=== PATIENT | male | born 2000 | race Caucasian/White ===

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

== ENCOUNTER 2021-11-08 07:19 | Day surgery (SDC) | payer BC, SELFPAY ==
[2021-11-06 10:40] VITALS: BMI 24.4
[2021-11-08 07:50] VITALS: BP 139/80; PULSE 85; RESP 18; TEMP 36.7; O2SAT 99
--- NOTE | 2021-11-08 07:52 | PC.NURSE ---
patient uncomfortableness in throat area, states it feels like a fullness, states why he is here.
[2021-11-08] MEDS: sodium chloride 0.9% 1,000 ML 30 ML IV (07:56)
--- NOTE | 2021-11-08 08:30 | ANES.PREANE2 ---
Pre-Anesthetic Assessment Height/Weight: Height 1.85 m Weight 83.915 kg Temp Pulse Resp BP Pulse Ox O2 Del Method 98.0 F 85 18 139/80 99 11/08/21 07:50 11/08/21 07:50 11/08/21 07:50 11/08/21 07:50 11/08/21 07:50 11/08/21 07:50 Preop Diagnosis: Epigastric pain Operation Date: 11/08/21 08:45 Proposed Procedures p EGD 337007,K21.9(Not Applicable) - Junior Christine MD Familial anesthetic complications: None Was Beta Aurelio taken within 24 hours: N/A Was Clonidine taken within 24 hours: N/A Last intake: Intake Last Liquid Date 11/07/21 Last Liquid Time 22:00 Last Solid Date 11/07/21 Last Solid Time 22:00 Social No alcohol and No tobacco Exam alert, oriented x 3, clear to auscultation bilaterally and regular rate & rhythm Airway Submandibular: within normal limits Cervical ROM: within normal limits Mallampati: Class I Dentition: chipped History/ROS No significant complaints Pulmonary None reported Sinus congestion today from allergies, denies fever/sore throat CV/HEM None reported None reported Hepatic None reported GI Gastroesophageal Reflux Disease Metabolic None reported Musc/skel None reported Neuropsych Anxiety Panic attacks Anesthetic Plan ASA status: 2 Anesthesia: Anesthesia Evaluation, General and MAC Other: I discussed with the patient risks, goals, and benefits of MAC and general anesthesia. We discussed spectrum of MAC anesthesia including conversion to general as well as possibility of recall of intraoperative stimuli including discomfort/pain. Patient agrees to proceed with MAC. Risk of > 500 ml blood loss (7ml/kg in children): No Medications/Allergies Home Medications Medication Instructions Recorded Confirmed Last Taken Type acetylcysteine 600 mg capsule 600 mg PO BID #60 caps 09/27/21 11/06/21 Unknown Rx sertraline 25 mg tablet (Zoloft) 25 mg PO QAM 11/06/21 11/06/21 Unknown History dexlansoprazole 60 mg 60 mg PO DAILY 11/08/21 11/08/21 11/08/21 History capsule,biphase delayed release (Dexilant) Allergies Allergy/AdvReac Type Severity Reaction Status Date / Time hydroxyzine Allergy hives Verified 11/06/21 10:38 Current Medications Generic Name Dose Route Start Last Admin Trade Name Freq PRN Reason Stop Dose Admin Sodium Chloride 1,000 mls @ 30 mls/hr 11/08/21 07:45 11/08/21 07:56 Sodium Chloride 0.9% IV 30 mls/hr .Q24H MARIA TERESA Administration PFSH Anesthesia Medical History Generalized anxiety disorder with panic attacks Psychiatric care Trichotillomania Surgical History No pertinent past surgical history Family History Father Hypertension Other Dementia Social History Smoking and tobacco status: current some day smoker Data Anesthesia Cardiac Studies: No Data to Display
--- NOTE | 2021-11-08 08:55 | P.HP_ITS ---
Same Day Surgery H&P Indication for Procedure/HPI DATE OF PROCEDURE: November 08, 2021 CHIEF COMPLAINT/INDICATIONFOR SURGICAL PROCEDURE: Epigastric pain PREOP DIAGNOSIS: Epigastric pain PLANNED PROCEDURE: Operation Date: 11/08/21 08:45 Proposed Procedures p EGD [id number],K21.9(Not Applicable) - Junior Chirstine MD 10/03/2021 This is a pleasant 20 years old gentleman gives history with epigastric pain and issues with swallow, reports that the pain is being stabbing gets better sometimes with PPI therapy and at some point he had some chest discomfort thinking that he was having a heart attack overall his pain is not better and I did notice during the clinical encounter that the patient does have a raspy voice which does indicate chronic GERD.? Patient reports that the pain mostly in the epigastric area and referred sometimes to the chest.? Nothing seems to make it better or worse Current symptoms: Reports odynophagia; Denies dysphagia Interim history 11/08/2021 Patient comes today for diagnostic EGD due to epigastric pain. ROS All systems have been reviewed negative except as for the above or per problem list. Medications/Allergies* Home Medications Medication Instructions Recorded Confirmed Type sertraline 25 mg tablet (Zoloft) 25 mg PO QAM 11/06/21 11/06/21 History dexlansoprazole 60 mg 60 mg PO DAILY 11/08/21 11/08/21 History capsule,biphase delayed release (Dexilant) Allergies/Adverse Reactions Allergy/AdvReac Type Severity Reaction Status Date / Time hydroxyzine Allergy hives Verified 11/08/21 08:56 Current Medications: Generic Name Dose Route Start Last Admin Trade Name Freq PRN Reason Stop Dose Admin Sodium Chloride 1,000 mls @ 30 mls/hr 11/08/21 07:45 11/08/21 07:56 Sodium Chloride 0.9% IV 30 mls/hr .Q24H MARIA TERESA Administration Pertinent History/Comorbid Conditions* Medical History (Updated 10/05/21 @ 12:16 by Junior Christine MD) Generalized anxiety disorder with panic attacks Psychiatric care Trichotillomania Surgical History (Updated 05/24/21 @ 14:18 by Fay Rinaldi MD) No pertinent past surgical history Family History (Updated 05/24/21 @ 14:01 by Bryanna Hendrix LPN, RT) Dementia Hypertension Father Social History Smoking and tobacco status: current some day smoker Pertinent Exam Findings alert, oriented x 3, regular rate & rhythm and procedure specific exam findings (Abdominal exam nontender nondistended soft) Recommendations Surgery/Procedure today (EGD with possible biopsy) Coding Level of Care Code Acute A And P Technician for [facility]
[2021-11-08 09:34] VITALS: BP 124/84; PULSE 110; RESP 16; TEMP 36.4; O2SAT 95
[2021-11-08 09:47] VITALS: BP 131/75; PULSE 87; RESP 16; O2SAT 95
[2021-11-08 09:57] VITALS: BP 135/83; PULSE 88; RESP 18; O2SAT 98
--- NOTE | 2021-11-08 14:40 | ANE.PACU2 ---
Inpatient post-anesthesia follow up: Airway intact: Yes Vital signs: Temperature 97.6 F Pulse Rate 88 Respiratory Rate 18 Blood Pressure 135/83 Pulse Oximetry 98 Oxygen Delivery Me thod Room Air Oxygen Flow Rate 4 Fraction of Inspir ed Oxygen Hydration adequate: Yes Nausea and vomiting: No Pain level: 1 Mental status: Baseline
== END 2021-11-08 10:20 | disposition home or self-care (01) ==
PROVIDERS: PCP Family Medicine; Visit Provider Surgery
PROC: 0DJ08ZZ Inspection of Upper Intestinal Tract, Via Natural or Artificial Opening Endoscopic (ICD-10-PCS; CPT 43235; principal; 2021-11-08 08:45)
DX: R10.13 Epigastric pain (principal); K21.9 Gastro-esophageal reflux disease without esophagitis; K29.70 Gastritis, unspecified, without bleeding
CPT/HCPCS: 43239; 88305; J2704; J7030

== ENCOUNTER 2021-11-24 16:28 | Emergency (ER) | payer BC, SELFPAY ==
[2021-11-24 16:30] VITALS: BP 153/99; PULSE 83; RESP 16; TEMP 36.8; O2SAT 98; BMI 22.8
--- NOTE | 2021-11-24 17:45 | W.ED.DENTAL ---
HPI - Dental/Oral General: Chief complaint: Dental/Oral Stated complaint: Mouth swollen and hurting Time Seen by Provider: 11/24/21 17:35 History of Present Illness: Patient is a 21-year-old male comes to the ED with dental pain. Symptoms started this morning. Patient has a broken bottom left molar that he seen dentist before approximately 3 months ago and they were supposed to remove it but he has not had a follow-up appointment to get that done. Today developed some pain and swelling in his left lower jaw. He rates the pain currently an 8 out of 10. He took a dose of Tylenol several hours before coming to the ED. Denies any fevers, trouble breathing. Associated symptoms: Denies fever(s) or odynophagia Review of Systems Const: Denies: fever(s), chills or fatigue Eyes: Denies: change in vision or eye discomfort ENMT: Reports: dental pain; Denies: throat pain, odynophagia, nasal discharge or nasal congestion Card: Denies: chest pain, palpitations, edema, swelling of feet/ankles, dyspnea on exertion or orthopnea Resp: Denies: dyspnea, productive cough or non-productive cough GI: Denies: abdominal pain, nausea, vomiting, diarrhea, constipation or hematochezia : Denies: flank pain, difficulty urinating, dysuria or hematuria Musc: Denies: neck pain, back pain or extremity swelling Skin/Breast: Denies: rash or new lesions Neuro: Denies: headache(s), numbness in extremities or weakness in extremities PFS ED PFSH: Medical History Bipolar affective disorder, current episode mixed, without psychotic features Generalized anxiety disorder with panic attacks Psychiatric care Trichotillomania Surgical History No pertinent past surgical history Family History Father Hypertension Other Dementia Social History Smoking and tobacco status: former smoker Quit status (tobacco): has quit using tobacco Year quit tobacco: 2016 Former quit date comment: vaped x 4 yrs Second hand smoke exposure: No Alcohol intake: never Adopted: No Caregiver/support person: Yes Lives independently: No Household members: family Marital status: Single Current occupational status: employed Current occupation: [employer] History of recent travel: No Current gender identity: Male Special cherri needs: No Agree to transfusion: Yes Physical Exam Const: COMMON NORMALS: no acute distress, patient oriented x3 and alert GENERAL APPEARANCE: cooperative and comfortable HENMT: COMMON NORMALS: normocephalic HEAD & SCALP: normocephalic MOUTH: Normal oral and palatal mucosa present TEETH & GINGIVA: Yes abnormal tooth and associated gingiva lower left third molar tender and with associated gingival edema THROAT: posterior oropharynx normal and uvula midline Neck/C-Spine: COMMON NORMALS: supple GENERAL: Yes normal visual inspection Resp: COMMON NORMALS: normal respiratory effort, No retractions, No use of accessory muscles and clear to auscultation bilaterally AUSCULTATION: clear to auscultation bilaterally Cardio: COMMON NORMALS: regular rate, regular rhythm, S1 normal heart sound present, S2 normal heart sound present, No gallops present (Cardio), No clicks present (Cardio), No murmurs present (Cardio) and Peripheral pulses 2+ throughout RATE: regular rate RHYTHM: regular rhythm HEART SOUNDS: S1 normal heart sound present and S2 normal heart sound present PERIPHERAL PULSES: Peripheral pulses 2+ throughout GI: COMMON NORMALS: Normal to inspection, nondistended, normoactive bowel sounds present, Soft to palpation, non-tender and no masses PALPATION: Yes Soft to palpation : COMMON NORMALS: Yes no CVA tenderness BLADDER/KIDNEY EXAM: Yes no CVA tenderness Back/Pelvis: COMMON NORMALS: no CVA tenderness Extremity: COMMON NORMALS: normal to inspection Neuro: COMMON NORMALS: patient oriented x3 SENSORIUM/ORIENTATION: Yes alert GAIT: Yes Normal gait present Skin: GENERAL SKIN EXAM: dry skin Course Vital Signs: Vital signs: Vital Signs Temperature 98.2 F 11/24/21 16:30 Pulse Rate 72 11/24/21 18:08 Respiratory Rate 17 11/24/21 18:08 Blood Pressure 153/99 11/24/21 16:30 Pulse Oximetry 98 11/24/21 18:08 Oxygen Delivery Me thod 11/24/21 18:03 [facility] - Dental/Oral Medical Decision Making Patient is a 21-year-old male comes to the ED with dental pain. Symptoms started earlier today. Patient has broken left lower molar with some surrounding gingival edema. Patient appears nontoxic in no acute distress. Denies any trouble breathing or any fevers. He was given a dose of hydrocodone here in the ED to help with pain and clindamycin. Told to follow-up with dentist as soon as possible. Sent home with a prescription for clindamycin, lidocaine viscous and Tylenol for pain. Return ED precautions given. Patient understood and agreed with plan. Discharge Plan Discharge Patient Disposition: Home Clinical Impression: Pain, dental Condition: Stable Prescriptions: New acetaminophen 650 mg tablet extended release 650 mg PO Q8H PRN (Reason: pain) Qty: 20 0RF Lidocaine Viscous 2 % solution 1 applic mucous membrane Q6H PRN (Reason: pain) Qty: 100 0RF clindamycin HCl 150 mg capsule 300 mg PO QID 7 Days Qty: 56 0RF No Action chlorpromazine 50 mg tablet 50 mg PO .bedtime Qty: 90 1RF Rx Instructions: Take one tablet at bedtime acetylcysteine 600 mg capsule 600 mg PO BID Qty: 180 1RF Rx Instructions: Take one capsule twice per day benzonatate 100 mg capsule 100 mg PO TID PRN (Reason: cough) 90 Days Qty: 90 1RF sucralfate [Carafate] 1 gram tablet 1 g PO Q6H Qty: 120 3RF dexlansoprazole [Dexilant] 60 mg capsule,biphase delayed releas 60 mg PO DAILY Qty: 90 1RF fexofenadine [Scarlet Allergy] 180 mg tablet 180 mg PO DAILY Qty: 90 2RF Discharge Orders: Discharge ED (Routine); Ordered 11/24/21 Ordered By: Tera Ortiz Referrals: Fay Rinaldi MD [Primary Care Provider] - Discharge Diet: Regular Discharge Activity: Increase activity as tolerated Patient Instructions: Toothache (ED) Activity Restrictions/Additional Instructions: Follow-up with dentist as soon as possible to have dental pain evaluated. Take medications as prescribed. Return to the ER or your medical provider if condition worsens. Please read and understand discharge instructions. Thank you for choosing [facility] for your healthcare needs today. Please realize this is an emergency room and that we are providing you with a medical screening exam and this may not be complete and all inclusive of all the testing and or work up that you may need to determine your ailment or severity of your illness. It is very important that you follow up as instructed or that you return to the Emergency Department should you have concerns or if your condition changes or worsens in any way. 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
[2021-11-24 18:03] VITALS: PULSE 76; RESP 17; O2SAT 97
[2021-11-24] MEDS: clindamycin 150 mg Capsule 300 MG PO (18:05)
[2021-11-24] MEDS: HYDROcodone-acetaminophen 7.5-325 mg Tablet 1 TAB PO (18:05)
[2021-11-24 18:08] VITALS: PULSE 72; RESP 17; O2SAT 98
== END 2021-11-24 18:09 | disposition home or self-care (01) ==
PROVIDERS: Emergency Provider Physician Assistant; PCP Family Medicine
DX: K08.89 Other specified disorders of teeth and supporting structures (principal); Z87.891 Personal history of nicotine dependence
CPT/HCPCS: 99283

== ENCOUNTER → 2022-10-25 10:42 | Outpatient (BNVA) | payer OTHER, SELFPAY | PROVIDERS: PCP Family Medicine; Visit Provider Family Medicine | DX: J02.9 Acute pharyngitis, unspecified (principal); F41.8 Other specified anxiety disorders | CPT/HCPCS: 87071; 87880 ==

== ENCOUNTER → 2023-07-30 14:30 | Outpatient (BNVA) | payer OTHER, SELFPAY | PROVIDERS: PCP Family Medicine; Visit Provider Family Medicine | DX: R07.0 Pain in throat (principal); J02.9 Acute pharyngitis, unspecified; K21.9 Gastro-esophageal reflux disease without esophagitis; F41.9 Anxiety disorder, unspecified | CPT/HCPCS: 87071; 87880 ==

== ENCOUNTER 2023-09-12 10:43 | Outpatient (CLI) | payer OTHER, SELFPAY ==
--- NOTE | 2023-09-12 10:49 | XR_ITS ---
WS: [id number] XR hand LT min 3V* [id number] REASON FOR EXAM: M79.642 - Pain in left hand FINDINGS: No fracture or focal bone lesion. No periosteal reaction or bone erosion. The joint spaces of the left hand are intact and well preserved. No soft tissue abnormality. XR/XR hand LT min 3V* [id number] IMPRESSION: No significant abnormality.
== END 2023-09-12 10:44 | disposition home or self-care (01) ==
PROVIDERS: PCP Family Medicine; Visit Provider Nurse Practitioner Family
DX: M79.642 Pain in left hand (principal)
CPT/HCPCS: 73130

== ENCOUNTER 2023-10-22 12:12 | Emergency (ER) | payer OTHER, SELFPAY ==
[2023-10-22 12:15] VITALS: BP 143/77; PULSE 78; RESP 15; TEMP 36.4; O2SAT 100; BMI 20.5
--- NOTE | 2023-10-22 13:17 | W.ED.URI ---
HPI - URI/Sore Throat General: Chief Complaint: Upper Respiratory Infection Stated Complaint: sinus issues Time Seen by Provider: 10/22/23 12:38 Source: patient Mode of arrival: ambulatory Limitations: no limitations History of Present Illness: 23-year-old male states been having maxillary and frontal sinus pain along with nasal discharge it has been going on for the last week. He states he had sinusitis in the past this feels same he rates his pain a 5 out of 10 denies any fever denies any other complaints at this time Associated symptoms: Reports nasal congestion and sinus pain; Deny abdominal pain, chills, chest pain, diarrhea, fever(s), headache(s), nausea or vomiting Related Data Previous Rx's Medication Instructions Recorded clonazepam 1 mg tablet 1 mg PO BID #60 tabs 07/30/23 dexlansoprazole 60 mg 60 mg PO DAILY #30 caps 08/19/23 capsule,biphase delayed release (Dexilant) diclofenac sodium 75 mg 75 mg PO BID PRN pain #60 tabs 09/22/23 tablet,delayed release methylprednisolone 4 mg tablets in See Rx Instructions PO PER PKG DIR 09/22/23 a dose pack (Medrol (Javier)) #21 ea amoxicillin 500 mg-potassium 1 tab PO BID #14 tabs 10/22/23 clavulanate 125 mg tablet (Augmentin) Allergies Allergy/AdvReac Type Severity Reaction Status Date / Time hydroxyzine Allergy hives Verified 10/22/23 12:19 Review of Systems Const: Denies: fever(s), chills, body aches or change in appetite ENMT: Reports: nasal congestion and sinus pain; Denies: throat pain or dental pain Card: Denies: chest pain Resp: Denies: dyspnea GI: Denies: abdominal pain, nausea, vomiting or diarrhea Musc: Denies: neck pain or back pain Skin/Breast: Denies: rash Neuro: Denies: headache(s) PFSH ED PFSH: Medical History Bipolar affective disorder, current episode mixed, without psychotic features Generalized anxiety disorder with panic attacks GERD without esophagitis Trichotillomania Surgical History No pertinent past surgical history Family History Father Hypertension Other CAD (coronary artery disease) Social History Smoking and tobacco/nicotine status: current every day tobacco/nicotine user Quit status (tobacco/nicotine): has quit using Year quit tobacco: 2016 Former quit date comment: vaped x 4 yrs Second hand smoke exposure: No Alcohol intake: current Alcohol intake frequency: few times a week Substance/Drug Use: former Adopted: No Caregiver/support person: Yes Lives independently: No Household members: family Marital status: Single Current occupational status: employed Current occupation: [employer] Current gender identity: Male Special cherri needs: No Agree to transfusion: Yes Physical Exam Const: COMMON NORMALS: no acute distress, patient oriented x3 and healthy appearing HENMT: COMMON NORMALS: normocephalic and atraumatic HEAD & SCALP: normocephalic and atraumatic OTHER: Tenderness over maxillary and frontal sinuses Neck/C-Spine: COMMON NORMALS: full ROM and supple Chest: COMMONS NORMALS: normal inspection of the chest Resp: COMMON NORMALS: normal respiratory effort Cardio: COMMON NORMALS: regular rate, regular rhythm and No murmurs present (Cardio) RATE: regular rate RHYTHM: regular rhythm Extremity: COMMON NORMALS: normal to inspection and full ROM Neuro: COMMON NORMALS: patient oriented x3, moves all extremities and no focal motor deficits Psych: COMMON NORMALS: mental status grossly normal, Normal thought process present and cooperative THOUGHT PROCESS: Normal thought process present Skin: COMMON NORMALS: no rashes or lesions noted and no wounds GENERAL SKIN EXAM: no rashes or lesions noted Course Vital Signs: Vital signs: Vital Signs Temperature 97.6 F 10/22/23 12:15 Pulse Rate 78 10/22/23 12:15 Respiratory Rate 15 10/22/23 12:15 Blood Pressure 143/77 10/22/23 12:15 Pulse Oximetry 100 10/22/23 12:15 Oxygen Delivery Me thod Room Air 10/22/23 12:15 MDM - URI/Sore Throat Medical Decision Making Patient presents for likely sinus infection he is well-appearing here patient stable for discharge follow-up PCP return if worsening. Will place him on Augmentin did give him Decadron here No radiology studies performed this visit Discharge Plan Discharge Patient Disposition: Home Clinical Impression: Sinusitis Condition: Stable Prescriptions: New amoxicillin-pot clavulanate [Augmentin] 500-125 mg tablet 1 tab PO BID Qty: 14 0RF No Action clonazepam 1 mg tablet 1 mg PO BID Qty: 60 0RF diclofenac sodium 75 mg tablet,delayed release (DR/EC) 75 mg PO BID PRN (Reason: pain) Qty: 60 0RF methylprednisolone [Medrol (Javier)] 4 mg tablets,dose pack See Rx Instructions PO PER PKG DIR Qty: 21 0RF Rx Instructions: PO PER PKG DIR dexlansoprazole [Dexilant] 60 mg capsule,biphase delayed releas 60 mg PO DAILY Qty: 30 3RF Discharge Orders: Discharge ED (Routine); Ordered 10/22/23 Ordered By: Dorian Flores Referrals: Fay Rinaldi MD [Primary Care Provider] - Discharge Diet: Advance as tolerated Discharge Activity: Resume usual activity Patient Instructions: Sinusitis (ED) Coding Level of Care Code 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
[2023-10-22] MEDS: dexamethasone 10 mg/mL INJ IM (13:28)
[2023-10-22] MEDS: ketorolac 60 mg/2 mL INJ IM (13:29)
[2023-10-22 13:33] VITALS: BP 143/77; PULSE 78; RESP 16
[2023-10-22 13:34] VITALS: BP 143/77; PULSE 78; O2SAT 98
== END 2023-10-22 13:39 | disposition home or self-care (01) ==
PROVIDERS: Emergency Provider Emergency Medicine; PCP Family Medicine
DX: J32.9 Chronic sinusitis, unspecified (principal); Z72.0 Tobacco use
CPT/HCPCS: 96372; 99284; J1100; J1885

== ENCOUNTER → 2024-01-12 14:00 | Outpatient (BNVA) | payer OTHER, SELFPAY | PROVIDERS: PCP Nurse Practitioner Family; Visit Provider Nurse Practitioner Family | DX: F41.8 Other specified anxiety disorders (principal) | CPT/HCPCS: 80053; 80061; 82607; 84443; 85025 ==

== ENCOUNTER → 2024-01-27 12:02 | Outpatient (BNVA) | payer OTHER, SELFPAY | PROVIDERS: PCP Nurse Practitioner Family; Visit Provider Nurse Practitioner Family | DX: J02.9 Acute pharyngitis, unspecified (principal) | CPT/HCPCS: 87880 ==

== ENCOUNTER → 2024-03-02 14:26 | Outpatient (BNVA) | payer OTHER, SELFPAY | PROVIDERS: PCP Nurse Practitioner Family; Visit Provider Nurse Practitioner Family | DX: R05.9 Cough, unspecified (principal) | CPT/HCPCS: 87400; 87426 ==

== ENCOUNTER → 2024-05-05 16:55 | Outpatient (BNVA) | payer OTHER, SELFPAY | PROVIDERS: PCP Nurse Practitioner; Visit Provider Nurse Practitioner | DX: T78.40XA Allergy, unspecified, initial encounter (principal); R10.10 Upper abdominal pain, unspecified; X58.XXXA Exposure to other specified factors, initial encounter | CPT/HCPCS: 86003; 86008 ==

== ENCOUNTER 2024-05-14 09:45 | Outpatient (CLI) | payer OTHER, SELFPAY ==
--- NOTE | 2024-05-14 10:00 | US_ITS ---
WS: [id number] Complete ABDOMINAL ULTRASOUND HISTORY: R10.10 - Upper abdominal pain, unspecified COMPARISON: None available. Liver: 14.3 cm in length. Normal size liver and echogenicity. No bile duct dilatation or mass. Portal Vein: Normal hepatopetal flow with monophasic waveform. Gallbladder: Normally distended gallbladder with no stones or wall thickening. CBD: 0.3 cm Pancreas: Normal size and echogenicity. Right kidney: 10.6 cm x 5.4 x 5.3 cm. Cortex:0.8 cm. Normal size and echogenicity. No hydronephrosis or mass. Left kidney: 10.3 cm x 4.7 cm x 4.9 cm. Cortex: 1.1 cm. Normal size and echogenicity. No hydronephrosis or mass. Spleen: 12.7 cm. Normal size and echogenicity. Aorta and IVC: Unremarkable abdominal aorta and IVC. US/US abdomen complete* [id number] Impression: Normal complete abdomen ultrasound.
== END 2024-05-14 09:46 | disposition home or self-care (01) ==
LOC: RAD 09:46
PROVIDERS: PCP Nurse Practitioner; Visit Provider Nurse Practitioner
DX: R10.10 Upper abdominal pain, unspecified (principal)
CPT/HCPCS: 76700

== ENCOUNTER 2024-08-12 10:25 | Emergency (ER) | payer OTHER, SELFPAY ==
[2024-08-12 10:28] VITALS: BP 166/88; PULSE 71; TEMP 36.5; O2SAT 100; BMI 20.7
--- OUTSIDE RECORDS SUMMARY | 2024-08-12 11:01 | XMS_ITS | Patient Health Record ---
Author Organization [facility] Address [address] [place] [phone] Care Team Providers Care Ripening Room Attendant Name Role Phone Alpa Kong Primary Care Provider Allergies Allergen (clinical drug ingredient) Drug/Non Drug Allergy documented on EMR Reaction Allergy Type Onset Date Status hydroxyzine Hydroxyzine Unknown Drug Allergy Act maría Reason For Referral No Information Medications Medication SIG (Take, Route, Frequency, Duration) Notes Start Date End Date Status hydrOXYzine HCl 50 MG 1 tablet as needed Orally every night as needed for 30 days 09/04/2020 Not-Taking Medrol 4 MG as directed Orally a s directed for 6 days 01/29/2021 Not-Taking Omeprazole 40 MG 1 capsule 30 minutes before morning meal Orally Once a day for 30 days 09/02/2020 Not-Taking buPROPion HCl ER (XL) 150 MG 1 tablet in the morning Orally Once a day for 30 day(s) 01/29/2021 Not-Taking Naproxen 500 MG 1 tablet with food o r milk as needed Orally every 12 hrs for 14 days 02/06/2021 Active Social History Tobacco Use: Social History Observation Description Date Details (start date - stop date) Never Smoker NA - NA Sex Assigned At : Social History Observation Description Sex Assigned At Male - Question Answer Notes Did you have a drink containing alcohol in the p ast year? No Points 0 Interpretation Negative DARLENE Drug Questionnaire Question Answer Notes Have you used drugs other th an those for medical reasons in the past 12 months? Yes Are you in a treatment program? No Have ever injected drugs? No Are you still using? No Is there a minor (18 years or younger) at risk a t home? No Do you smoke for age 13 and up Question Answer Notes Are you a: never smoker Smokeless Tobacco Question Answer Notes Tobacco use other than smoking No Have you ever had an STD Question Answer Notes Have you ever had an STD Yes Chlamydia Yes PRAPARE Question Answer Notes Date Completed/Updated: 09/06/2020 What is your current housing situation? I have h ousing Are you worried about losing your housing? No What is the highest level of school that you have finished? 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 Check all that apply Food,Clothing Has lack of transportation k ept you from medical appointments, meetings, work or from getting things needed for daily living? No How often do you see or talk to people that you care about and feel close to? (For example: talking to friends on the phone, visiting friends or family, going to latter-day or club meetings) More than 5 times a week How stressed are you? Stress is when someone feels tense, nervous, anxious, or can't sleep at night because their mind is troubled Very much In the past year have you sp ent more than 2 nights in a row in a group home, penitentiary, half-way center, or juvenile correctional facility? No Are you a refugee? No What country are you from? [place] Do you feel physically and e motionally safe where you currently live? Yes In the past year, have you b een afraid of your partner or ex-partner? No PRAPARE Score: 7 Enabling Services Provided? Yes Please specify Other Services Problems Problem Type SNOMED Code ICD Code Onset Dates Problem Status W/U Status Risk Notes Problem 53912676 Anxiety (F41.9) Active confirmed Problem 53261442 Generalized anxi ety disorder (F41.1) Active confirmed Problem Stomach pain (K30) Active confirmed Problem 860489588 Major depressive disorder, recurrent episode, moderate (F33.1) Active confirmed Problem 80491825 Cannabis depende nce, unspecified (F12.20) Active confirmed Problem [id number] Gastroesophageal reflux disease, unspecified whether esophagitis present (K21.9) Active confirmed Plan Of Treatment No Information Insurance Providers Payer Name Payer Address Payer Phone Subscriber Number Group Number Insured Name Patient Relationship to Insured Coverage Start Date Coverage End Date [facility] [address] [place] [id number] Shubham Alvarado Self - patient is the insured Medications Administered Medication Instructions Date of Administration Dosage Notes Decadron LA 8mg 09/02/2020 8 uL Decadron SA 4mg/ml (dexamethasone) 09/02/2020 4 mg Toradol 09/02/2020 30 mg Medical (General) History Medical History History ICD Code Acid Reflux Anxiety Depression PTSD Surgical History Surgery Date(Month/Year) Hospitalization History Reason Date(Month/Year) [facility] 2013
--- OUTSIDE RECORDS SUMMARY | 2024-08-12 11:01 | XMS_ITS | Patient Health Record ---
Author Organization [facility] Address [address] [place] [id number] Support Name Relationship Address Phone Shubham Alvarado Guarantor Unknown Allergies Allergen (clinical drug ingredient) Drug/Non Drug Allergy documented on EMR Reaction Allergy Type Onset Date Status hydroxyzine Hydroxyzine Unknown Drug Allergy Act maría Reason For Referral No Information Medications Medication SIG (Take, Route, Frequency, Duration) Notes Start Date End Date Status Dexilant Active busPIRone HCl Active Carafate Active Social History Tobacco Use: Social History Observation Description Date Details (start date - stop date) Current Smoker NA - NA Smoking Question Answer Notes Smoking Status: current smoker Plan Of Treatment Pending Test Test Name Order Date Urinalysis, Routine 02/22/2022 Vision Screening 02/22/2022 Hearing Screening 02/22/2022 BTE 02/22/2022 Insurance Providers Payer Name Payer Address Payer Phone Subscriber Number Group Number Insured Name Patient Relationship to Insured Coverage Start Date Coverage End Date [facility] [employer] Shubham Alvarado Self - patient is the insured Medical (General) History Medical History History ICD Code gastroesophageal reflux disease (GERD) gastritis anxiety
[2024-08-12 11:59] VITALS: BP 139/93; O2SAT 100
--- NOTE | 2024-08-12 12:19 | ED_ITS ---
HPI - General Adult 2 General: Chief complaint: General Medical Stated complaint: medication problems(dizzy,Falling) Time Seen by Provider: 08/12/24 11:57 History of Present Illness: 23-year-old who presents emergency room with dizziness. He says he was placed on antidepressant a couple days ago and has had increasing balance and dizziness problems. He said he called his provider who told him to come to the emergency room to be evaluated. Currently has no gait issues. No focal motor deficits. He says he is taken the same medication before and had the same symptoms. Related Data Home Medications ?Medication ?Instructions ?Recorded ?Confirmed escitalopram oxalate 10 mg tablet 10 mg PO QAM 5 08/12/24 (Lexapro) fluticasone propionate 50 1 spray intranasal BID 08/1208/12/24 mcg/actuation nasal spray,suspension levofloxacin 500 mg tablet 500 mg PO DAILY 08/12/24 promethazine-DM 6.25 mg-15 mg/5 mL 10 ml PO Q6H PRN Co ugh 08/12/24 08/12/24 oral syrup Previous Rx's ?Medication ?Instructions ?Recorded sucralfate 1 gram tablet (Carafate) 1 g PO QID #120 ta bs 11/05/23 azelastine 137 mcg-fluticasone 50 1 spray intranasal B ID #23 grams 08/04/24 mcg/spray nasal spray (Dymista) doxycycline hyclate 100 mg capsule 100 mg PO BID #20 c aps 08/04/24 pantoprazole 20 mg tablet,delayed 20 mg PO BID #60 tab s 08/04/24 release fexofenadine 60 mg-pseudoephedrine 1 tab PO Q12H PRN s inus symptoms 08/09/24 ER 120 mg tablet,ext.release,12 hr 14 days #30 tabs (Scarlet-D 12 Hour) prednisone 10 mg tablet 30 mg (3 x 10 mg) PO DAILY 5 days 08/09/24 #15 tabs Allergies Allergy/AdvReac Type Severity Reaction Status Date / Time Alpha-Gal Allergy ADR-Vomitin Verified 08/12/24 10:33 (Fbcxaimym-Qdogm-2,3-Gala g hydroxyzine Allergy hives Verified 08/12/24 10:33 Review of Systems 2 Narrative: Constitutional symptoms: Negative except as documented in HPI. Skin symptoms: Negative except as documented in HPI. Eye symptoms: Negative except as documented in HPI. ENMT symptoms: Negative except as documented in HPI. Respiratory symptoms: Negative except as documented in HPI. Cardiovascular symptoms: Negative except as documented in HPI. Gastrointestinal symptoms: Negative except as documented in HPI. Genitourinary symptoms: Negative except as documented in HPI. Musculoskeletal symptoms: Negative except as documented in HPI. Neurologic symptoms: Negative except as documented in HPI. Psychiatric symptoms: Negative except as documented in HPI. Endocrine symptoms: Negative except as documented in HPI. PFSH ED 2 PFSH: Medical History Seasonal allergies Bipolar affective disorder, current episode mixed, without psychotic features Generalized anxiety disorder with panic attacks GERD without esophagitis Trichotillomania Surgical History No pertinent past surgical history Family History Father Hypertension Other CAD (coronary artery disease) Social History Smoking and tobacco/nicotine status: never used tobacco/nicotine Quit status (tobacco/nicotine): has quit using Year quit tobacco: 2016 Former quit date comment: vaped x 4 yrs Second hand smoke exposure: No Alcohol intake: current Alcohol intake frequency: few times a week Substance/Drug Use: former Adopted: No Caregiver/support person: Yes Lives independently: No Household members: family Marital status: Single Current occupational status: employed Current occupation: [employer] Current gender identity: Male Special cherri needs: No Agree to transfusion: Yes Physical Exam 2 Narrative: EXAM NARRATIVE: General: Alert, no acute distress. Skin: Warm, dry. Head: Normocephalic, atraumatic. Neck: Supple, trachea midline. Eye: Extraocular movements are intact. Ears, nose, mouth and throat: mucosa moist. Cardiovascular: Regular, Normal peripheral perfusion. Respiratory: Lungs are clear to auscultation, respirations are non-labored, breath sounds are equal, Symmetrical chest wall expansion. Gastrointestinal: Soft, Nontender, Non distended Musculoskeletal: Normal ROM, no deformity. Neurological: Alert and oriented, No focal neurological deficit observed. Psychiatric: Cooperative, appropriate mood & affect. Course 2 Vital Signs: Vital signs: Vital Signs Temperature 97.7 F 08/12/24 10:28 Pulse Rate 71 08/12/24 10:28 Blood Pressure 139/93 08/12/24 11:59 Pulse Oximetry 99 08/12/24 13:04 Oxygen Delivery Me thod Room Air 08/12/24 10:28 MDM - General Adult Medical Decision Making Medical decision making: Differential diagnosis including but not limited to and based on the above HPI, review of systems and physical exam: for patient with complaint of dizziness: stroke, hypotension, hypertension, infection, vertigo, orthostasis Orders placed to evaluate differential diagnosis based on the above differential, HPI and physical exam EKG: Time 1251. Rate 59. Sinus bradycardia, No ST-T changes, no ectopy, normal NM & QRS intervals, This was reviewed and interpreted by myself the ER physician at 1255 Lab Review: Laboratory results were reviewed and interpreted by myself the emergency room physician. Lab work is unremarkable I reviewed the patient's medical record. Reexamination: Patient remained stable. No increased work of breathing. No altered mental status. No focal motor deficits. Assessment and plan: Adverse medication reaction ?Advised patient cease taking this medication and speak with the prescribing provider about alternatives. - Discharged home - Discussed plan with patient. Answered any questions. - Evaluation and treatment of this problem were appropriate in the emergency setting. Lab Data 08/12/24 12:39 08/12/24 12:39 Laboratory Results WBC 4.29 10^3/uL (3.29-11.43) 08/12/24 12:39 RBC 5.50 10^6/uL (3.85-5.65) 08/12/24 12:39 Hgb 16.10 g/dL (11.27-16.99) 08/12/24 12:39 Hct 47.6 % (37-53) 08/12/24 12:39 MCV 86.5 fl (82-101) 08/12/24 12:39 MCH 29.3 pg (27-33) 08/12/24 12:39 MCHC 33.8 g/dL (30-55) 08/12/24 12:39 RDW 11.4 % (12.1-15.1) L 08/12/24 12:39 Plt Count 286 10^3/cmm (157-399) 08/12/24 12:39 MPV 9.5 fL (7.4-10.4) 08/12/24 12:39 Neut % (Auto) 41.6 % 08/12/24 12:39 Lymph % (Auto) 42.4 % 08/12/24 12:39 [place] % (Auto) 10.7 % 08/12/24 12:39 Eos % (Auto) 4.4 % 08/12/24 12:39 Baso % (Auto) 0.7 % 08/12/24 12:39 Neut # (Auto) 1.78 10^3/uL (1.8-7.7) L 08/12/24 12:39 Lymph # (Auto) 1.8 10^3/uL (0.8-4.8) 08/12/24 12:39 [place] # (Auto) 0.5 10^3/uL (0.2-0.9) 08/12/24 12:39 Eos # (Auto) 0.2 10^3/uL (0.0-0.8) 08/12/24 12:39 Baso # (Auto) 0.0 10^3/uL (0.0-0.1) 08/12/24 12:39 Nucleated RBC % (auto) 0 % 08/12/24 12:39 Nucleated RBCs # 0.0 /100WBC 08/12/24 12:39 Sodium 139 mmol/L (136-145) 08/12/24 12:39 Potassium 4.1 mmol/L (3.5-5.1) 08/12/24 12:39 Chloride 99 mmol/L (98-107) 08/12/24 12:39 Carbon Dioxide 27 mmol/L (22-29) 08/12/24 12:39 Anion Gap 17.1 (5-19) 08/12/24 12:39 BUN 10 mg/dL (6-20) 08/12/24 12:39 Creatinine 0.6 mg/dL (0.7-1.2) L 08/12/24 12:39 GFR Calculation 168.5 mL/min (90-130) H 08/12/24 12:39 Glucose 85 mg/dL (65-115) 08/12/24 12:39 Calculated Osmolality 286 mOsm/kg (285-295) 08/12/24 12:39 Calcium 10.0 mg/dL (8.5-10.5) 08/12/24 12:39 Total Bilirubin 0.4 mg/dL (0.15-1.2) 08/12/24 12:39 AST 28 U/L (0-40) 08/12/24 12:39 ALT 33 U/L (0-41) 08/12/24 12:39 Alkaline Phosphatase 116 U/L (40-130) 08/12/24 12:39 Total Protein 7.8 g/dL (6.6-8.7) 08/12/24 12:39 Albumin 4.9 g/dL (3.5-5.2) 08/12/24 12:39 Globulin 2.9 g/dL (1.3-4.6) 08/12/24 12:39 Urine Color Yellow (Yellow) 08/12/24 12:26 Urine Appearance Clear (CLEAR) 08/12/24 12:26 Urine pH 8.0 (5-7) A 08/12/24 12:26 Ur Specific [place] 1.012 (1.005-1.030) 08/12/24 12:26 Urine Protein Negative (Negative) 08/12/24 12:26 Urine Glucose (UA) Negative (Normal) 08/12/24 12: Urine Ketones Negative (Negative) 08/12/24 12: Urine Blood Negative (Negative) 08/12/24 12:26 Urine Nitrate Negative (Negative) 08/12/24 12:26 Urine Bilirubin Negative (Negative) 08/12/24 12:26 Urine Urobilinogen 0.2 mg/dL (Negative) 08/12/24 12:26 Ur Leukocyte Esterase Negative (Negative) 08/12/24 12:26 Urine RBC 0-2 /hpf (0-2) 08/12/24 12:26 Urine WBC 0-5 /hpf (0-5) 08/12/24 12:26 Ur Squamous Epith Cells 0-5 /hpf (0-5) 08/12/24 12:26 Amorphous Sediment Not Reportable 08/12/24 12:26 Urine Bacteria None seen /hpf (NONE) 08/12/24 12:26 Hyaline Casts 0-4 /lpf H 08/12/24 12:26 Ethyl Alcohol < 10 mg/dL (0-10) 08/12/24 12:39 No radiology studies performed this visit Discharge Plan Discharge Patient Disposition: Home Clinical Impression: Dizziness, Medication reaction Condition: Stable Prescriptions: No Action sucralfate [Carafate] 1 gram tablet 1 g PO QID Qty: 120 3RF pantoprazole 20 mg tablet,delayed release (DR/EC) 20 mg PO BID Qty: 60 5RF azelastine-fluticasone [Dymista] 137-50 mcg/spray spray,non-aerosol 1 spray intranasal BID Qty: 23 0RF Rx Instructions: administer into each nostril doxycycline hyclate 100 mg capsule 100 mg PO BID Qty: 20 0RF prednisone 10 mg tablet 30 mg PO DAILY 5 Days Qty: 15 0RF fexofenadine-pseudoephedrine [Scarlet-D 12 Hour] 60-120 mg tablet extended release 12 hr 1 tab PO Q12H PRN (Reason: sinus symptoms) 14 Days Qty: 30 0RF promethazine-DM 6.25-15 mg/5 mL syrup 10 ml PO Q6H PRN (Reason: Cough) levofloxacin 500 mg tablet 500 mg PO DAILY fluticasone propionate 50 mcg/actuation spray,suspension 1 spray INTRANASAL BID escitalopram oxalate [Lexapro] 10 mg tablet 10 mg PO QAM Discharge Orders: Discharge ED (Routine); Ordered 08/12/24 Ordered By: Ramya White Referrals: Monique Hoyos, [facility] [Primary Care Provider, Family Practice] Discharge Diet: Usual diet Discharge Activity: Increase activity as tolerated Patient Instructions: Opioid Safety, Pain Management, Patient Portal & Griselda Instructions Activity Restrictions/Additional Instructions: Thank you for choosing [facility] for your healthcare needs today. You have been screened and evaluated and felt safe for discharge. Health conditions do change or evolve sometimes and as such it is important that you follow up with your Primary Doctor to be re checked, 3-5 days is a general good time frame for follow up. You are always welcome to return to the ED for re assessment if your symptoms are worsening or you have new concerns Print Language: Moroccan Coding Level of Care Code ED Academic Services Professional for Florian Pearson
[2024-08-12 12:44] LABS: Basophils % 0.7 %; Eosinophils # 0.2 10^3/uL (0.0-0.8); Eosinophils % 4.4 %; Hematocrit 47.6 % (37-53); Lymphocytes # 1.8 10^3/uL (0.8-4.8); Lymphocytes % 42.4 %; Mean Corpuscular HGB Conc 33.8 g/dL (30-55); Mean Corpuscular Hemoglobin 29.3 pg (27-33); Mean Corpuscular Volume 86.5 fl (82-101); Mean Platelet Volume 9.5 fL (7.4-10.4); Monocytes # 0.5 10^3/uL (0.2-0.9); Monocytes % 10.7 %; Neutrophils # 1.78 10^3/uL (1.8-7.7); Neutrophils % 41.6 %; Nucleated Red Blood Cells % 0 %; Platelet Count 286 10^3/cmm (157-399); Red Cell Distribution Width 11.4 % (12.1-15.1); White Blood Count 4.29 10^3/uL (3.29-11.43)
[2024-08-12 12:45] LABS: Bilirubin Urine Negative (Negative); Blood Urine Negative (Negative); Glucose Urine UA Negative (Normal); Ketones Urine Negative (Negative); Leukocyte Esterase Urine Negative (Negative); Nitrate Urine Negative (Negative); Protein Urine Negative (Negative); Specific Gravity, Urine 1.012 (1.005-1.030); Urine Appearance Clear (CLEAR); Urine Color Yellow (Yellow); Urobilinogen Urine 0.2 mg/dL (Negative)
[2024-08-12 12:47] LABS: Bacteria Urine None Seen /hpf; Hyaline Casts Urine 0-4 /lpf; RBC Urine 0-2 /hpf (0-2); Squamous Epithelial Cell Urine 0-5 /hpf (0-5); WBC Urine 0-5 /hpf (0-5)
--- NOTE | 2024-08-12 12:51 | ECG_ITS ---
[employer] Smart Checkout Test Date: 2024-08-12 Pat Name: Shubham Alvarado Department: Room: Gender: Male Compliance Aide: : 2000 Requested By: Ramya Goodson Order Number: [id number] Reading MD: Measurements Intervals Banner Rate: 59 P: 50 LA: 175 QRS: 76 QRSD: 120 T: 67 QT: 396 QTc: 395 Interpretive Statements SINUS BRADYCARDIA WITH SINUS ARRHYTHMIA POSSIBLE RIGHT VENTRICULAR CONDUCTION DELAY [RSR (QR) IN V1/V2] [email or web address]
[2024-08-12 13:01] LABS: Alanine Aminotransferase 33 U/L (0-41); Albumin Level 4.9 g/dL (3.5-5.2); Alkaline Phosphatase 116 U/L (40-130); Anion Gap 17.1 (5-19); Aspartate Amino Transferase 28 U/L (0-40); Blood Urea Nitrogen 10 mg/dL (6-20); Carbon Dioxide 27 mmol/L (22-29); Chloride 99 mmol/L (98-107); Creatinine Clr Calc Pharmacy 208.7551; Globulin 2.9 g/dL (1.3-4.6); Glomerular Filtration Rate 168.5 mL/min (90-130); Glucose 85 mg/dL (65-115); Osmolality Calculated 286 mOsm/kg (285-295); Potassium 4.1 mmol/L (3.5-5.1); Sodium 139 mmol/L (136-145); Total Bilirubin 0.4 mg/dL (0.15-1.2); Total Protein 7.8 g/dL (6.6-8.7)
[2024-08-12 13:04] VITALS: O2SAT 99
[2024-08-12 13:04] LABS: Alcohol Level < 10 mg/dL (0-10)
--- NOTE | 2024-08-12 13:08 | PC.NURSE ---
this nurse assumed pt care from DEMOND Dickson at 1300.
[2024-08-12 13:09] LABS: Add Urine Culture? No
== END 2024-08-12 13:56 | disposition home or self-care (01) ==
PROVIDERS: Emergency Provider Emergency Medicine; PCP Nurse Practitioner
DX: T88.7XXA Unspecified adverse effect of drug or medicament, initial encounter (principal); X58.XXXA Exposure to other specified factors, initial encounter; Z87.891 Personal history of nicotine dependence
CPT/HCPCS: 36415; 80053; 80307; 81001; 85025; 93005; 99284

== ENCOUNTER → 2024-12-13 14:52 | Outpatient (BNVA) | payer OTHER, SELFPAY | PROVIDERS: PCP Nurse Practitioner; Visit Provider Clinical Nurse Specialist Adult Health | DX: R61 Generalized hyperhidrosis (principal) | CPT/HCPCS: 71046 ==